=== PATIENT | female | born 1975 | race Caucasian/White ===

== ENCOUNTER 2017-06-16 21:02 | Observation (INO) | payer OTHER ==
[2017-06-16 21:02] VITALS: BMI 29.9
[2017-06-16] MEDS ORDERED: HYDROmorphone 2 mg/ml ISec IVP STA (21:33)
[2017-06-16] MEDS ORDERED: Sodium Chloride 0.9% 1,000 ML IV STA (21:33)
--- NOTE | 2017-06-16 21:33 | ED PDOC ---
Arrival/HPI - General Chief Complaint: Back Pain Time Seen by Provider: 06/16/17 21:29 Historian: Patient - History of Present Illness Narrative History of Present Illness (Text): 06/16/17 21:32 Malini Alcala is a 41 year old female, whose past medical history includes nephrolithiasis, lithotripsy, and cholecystectomy, who presents to the emergency department complaining of right flank pain today. Patient states she woke up this morning with some decreased urine output and developed right flank pain later in the day. Patient reports symptoms are consistent with previous episodes of kidney stones, for which she has been seen and evaluated by her urologist. Patient denies any fever, chills, nausea, vomiting, diarrhea,neck pain, headache, or any other complaints. PMD: Dr. Fall Time/Duration: Other (tonight) Symptom Onset: Gradual Symptom Course: Unchanged Activities at Onset: Light Context: Home Past Medical History - Provider Review Nursing Documentation Reviewed: Yes - Infectious Disease Hx of Infectious Diseases: None - Tetanus Immunization Tetanus Immunization: Unknown - Past Medical History Past Medical History: Non-Contributing - Cardiac Hx Cardiac Disorders: No Hx Hypertension: No - Pulmonary Hx Tuberculosis: No - Neurological HX Cerebrovascular Accident: No Hx Seizures: No - HEENT Hx HEENT Disorder: No - Renal Hx Renal Disorder: No Hx Kidney Stones: Yes - Endocrine/Metabolic Hx Endocrine Disorders: No - Hematological/Oncological Hx Cancer: No - Musculoskeletal/Rheumatological Hx Musculoskeletal Disorders: Yes Hx Back Pain: Yes - Gastrointestinal Hx Gastrointestinal Disorders: No - Genitourinary/Gynecological Hx Genitourinary Disorders: No Hx Sexually Transmitted Diseases: No - Psychiatric Hx Psychophysiologic Disorder: No Hx Substance Use: No - Surgical History Hx Section: Yes Other/Comment: cosmetic surgery - Anesthesia Hx Anesthesia: Yes Hx Anesthesia Reactions: No Hx Malignant Hyperthermia: No - Suicidal Assessment Feels Threatened In Home Enviroment: No Family/Social History - Physician Review Nursing Documentation Reviewed: Yes Family/Social History: Unknown Family HX Smoking Status: Never Smoked Hx Alcohol Use: Yes Hx Substance Use: No Hx Substance Use Treatment: No Allergies/Home Meds Allergies/Adverse Reactions: Allergies No Known Allergies Allergy (Verified 11/09/16 11:44) Home Medications: Home Meds Medication Instructions Recorded Confirmed Oxybutynin XL [Ditropan XL] 15 mg PO DAILY PRN 11/09/16 06/16/17 levoFLOXacin [Levaquin] 500 mg PO DAILY 11/09/16 06/16/17 Review of Systems - Physician Review All systems were reviewed & negative as marked: Yes - Review of Systems Constitutional: Normal. absent: Fevers Eyes: Normal ENT: Normal Respiratory: Normal. absent: SOB Cardiovascular: Normal. absent: Chest Pain Genitourinary Female: Urine Output Changes (+decreased urine output) Musculoskeletal: Back Pain (+right flank pain). absent: Neck Pain Skin: Normal. absent: Rash Neurological: Normal. absent: Headache, Dizziness Endocrine: Normal Hemo/Lymphatic: Normal Psychiatric: Normal Physical Exam Vital Signs Reviewed: Yes Vital Signs Temp Pulse Resp BP Pulse Ox 06/17/17 00:28 81 16 127/85 100 06/16/17 21:23 98.0 F 92 H 18 146/100 H 97 Temperature: Afebrile Blood Pressure: Normal Pulse: Regular Respiratory Rate: Normal Appearance: Positive for: Well-Appearing, Non-Toxic, Comfortable Pain Distress: None Mental Status: Positive for: Alert and Oriented X 3 - Systems Exam Head: Present: Atraumatic, Normocephalic Pupils: Present: PERRL Extroacular Muscles: Present: EOMI Conjunctiva: Present: Normal Mouth: Present: Moist Mucous Membranes Neck: Present: Normal Range of Motion Respiratory/Chest: Present: Clear to Auscultation, Good Air Exchange. No: Respiratory Distress, Accessory Muscle Use Cardiovascular: Present: Regular Rate and Rhythm, Normal S1, S2. No: Murmurs Abdomen: Present: Normal Bowel Sounds. No: Tenderness, Distention, Peritoneal Signs Back: Present: Normal Inspection Upper Extremity: Present: Normal Inspection. No: Cyanosis, Edema Lower Extremity: Present: Normal Inspection. No: Edema Neurological: Present: GCS=15, CN II-XII Intact, Speech Normal Skin: Present: Warm, Dry, Normal Color. No: Rashes Psychiatric: Present: Alert, Oriented x 3, Normal Insight, Normal Concentration Medical Decision Making ED Course and Treatment: 06/16/17 21:33 Impression: 41 year old female complaining of right flank pain with decreased urine output since this morning. Differential Diagnosis included but are not limited to: renal colic vs. renal stones Plan: -- CT Abdomen and Pelvis w/o contrast -- Labs -- Urinalysis -- IV fluids -- Zofran -- Dilaudid -- Reassess and disposition Prior Visits: Notes and results from previous visits were reviewed. On 11/09/2016, pt was seen in the Emergency department for right flank pain radiating to her RLQ. Pt was admitted to the hospital for further evaluation. Progress Notes: 06/16/17 23:47 Reviewed radiology, CT Abdomen and Pelvis shows: 1. RIGHT proximal ureteral calculus with [id number] hydronephrosis. 2. Incidental/non-acute findings are described above. 06/17/17 00:29 Pt still experiencing right flank pain. Will order Dilaudid Case discussed with Dr. Milvia Fall, who is aware and agrees with plan. States he will consult on case. 06/17/17 00:31 Case discussed with medical and scientific illustrator contract associate manager, who is aware and agrees with plan. 06/17/17 00:[address] Argueta, who is aware and agrees with plan. Accepts pt in to hospitalist service. Pt will go to [facility] observation for right-sided renal colic. Discussed results and hospital observation plan with pt, who is aware and verbalizes understanding. - Lab Interpretations Lab Results: 06/16/17 21:40 06/16/17 21:40 Lab Results 06/16/17 21:40: Alcohol, Quantitative < 10 06/16/17 21:40: Sodium 142, Potassium 3.6, Chloride 106, Carbon Dioxide 26, Anion Gap 14, BUN 12, Creatinine 0.8, Est GFR ( Amer) > 60, Est GFR (Non- Af Amer) > 60, Random Glucose 92, Calcium 9.5, Total Bilirubin 0.4, AST 28, ALT 31, Alkaline Phosphatase 67, Total Protein 6.7, Albumin 4.1, Globulin 2.6, Albumin/Globulin Ratio 1.6 06/16/17 21:40: Urine Color Yellow, Urine Appearance Sl cloudy, Urine pH 6.0, Ur Specific [place] >= 1.030, Urine Protein Trace H, Urine Glucose (UA) Negative , Urine Ketones Trace H, Urine Blood Large H, Urine Nitrate Negative, Urine Bilirubin Negative, Urine Urobilinogen 0.2, Ur Leukocyte Esterase Negative, Urine RBC 25 - 30, Urine WBC Negative, Ur Epithelial Cells 10 - 12, Urine Bacteria Trace 06/16/17 21:40: WBC 8.2 D, RBC 3.97, Hgb 12.6, Hct 36.0, MCV 90.7, MCH 31.7, MCHC 35.0, RDW 12.5, Plt Count 257, MPV 9.6, Gran % 65.0, Lymph % (Auto) 25.5, [place] % (Auto) 4.9, Eos % (Auto) 4.4, Baso % (Auto) 0.2, Gran # 5.29, Lymph # 2.1 , [place] # 0.4, Eos # 0.4, Baso # 0.02 I have reviewed the lab results: Yes - RAD Interpretation Narrative RAD Interpretations (Text): CT Abdomen and Pelvis shows: Lower thorax: Minimal atelectasis/scarring. ABDOMEN: Liver: Unremarkable. Gallbladder and bile ducts: Cholecystectomy. No ductal dilation. Pancreas: Unremarkable. No ductal dilation. Spleen: No splenomegaly. Adrenals: No mass. Kidneys and ureters: LEFT renal cyst. Few small renal calculi. Nahm-re-wurnzvgm pelvocaliectasis of RIGHT kidney. 0.3 x 0.3 x 0.3 cm calculus within RIGHT proximal ureter. Stomach and bowel: No definite mural thickening. No obstruction. Appendix: Normal caliber. No inflammation. PELVIS: Bladder: Unremarkable. No stones. Reproductive: Unremarkable as visualized. ABDOMEN and PELVIS: Intraperitoneal space: No significant fluid collection. No free air. Bones/joints: No acute fracture. Soft tissues: Tiny umbilical hernia containing fat. Vasculature: Unremarkable. No aneurysm. Lymph nodes: No pathologically enlarged lymph nodes. IMPRESSION: 1. RIGHT proximal ureteral calculus with [id number] hydronephrosis. 2. Incidental/non-acute findings are described above. Radiology Orders: 06/16/17 21:33 ABD & PELVIS W/O PO OR IV CONT [CT] Stat Skein Mercerizing Machine Operator: Radiologist - Medication Orders Current Medication Orders: Discontinued Medications Docusate Sodium (Colace) 100 mg PO DAILY [facility] Last Admin: 06/17/17 10:00 Dose: Not Given Non-Admin Reason: Nausea Hydrochlorothiazide (Microzide) 12.5 mg PO DAILY [facility] Last Admin: 06/17/17 10:00 Dose: Not Given Non-Admin Reason: Nausea Hydromorphone HCl (Dilaudid) 2 mg IVP STAT STA Stop: 06/16/17 21:34 Last Admin: 06/16/17 21:56 Dose: 2 mg Re-Assess: [facility] Pain Assessment Document 06/17/17 02:15 KP (Rec: 06/17/17 03:46 KP [id number]) Pain Reassessment Is this a pain reassessment? Yes Sleep Is patient sleeping during reassessment? No Presence of Pain Presence of Pain No Hydromorphone HCl (Dilaudid) 2 mg IVP STAT STA Stop: 06/17/17 00:30 Last Admin: 06/17/17 00:49 Dose: 2 mg Re-Assess: [facility] Pain Assessment Document 06/17/17 02:30 KP (Rec: 06/17/17 02:52 KP [id number]) Pain Reassessment Is this a pain reassessment? Yes Sleep Is patient sleeping during reassessment? No Presence of Pain Presence of Pain No Sodium Chloride (Sodium Chloride 0.9%) 1,000 mls @ 100 mls/hr IV .Q10H STA Stop: 06/17/17 07:32 Last Admin: 06/16/17 21:55 Dose: 100 mls/hr Ceftriaxone Sodium (Rocephin 1 Gram Ivpb) 1 gm in 100 mls @ 200 mls/hr IVPB STAT STA PRN Reason: Protocol Stop: 06/17/17 01:16 Last Admin: 06/17/17 01:31 Dose: 200 mls/hr Sodium Chloride (Sodium Chloride 0.9%) 1,000 mls @ 200 mls/hr IV .Q5H [facility] Last Admin: 06/17/17 02:15 Dose: 200 mls/hr Sodium Chloride (Sodium Chloride 0.9%) 1,000 mls @ 100 mls/hr IV .Q10H [facility] Sodium Chloride (Sodium Chloride 0.9%) 1,000 mls @ 125 mls/hr IV .Q8H [facility] Ketorolac Tromethamine (Toradol) 30 mg IVP ONCE ONE Stop: 06/17/17 03:01 Last Admin: 06/17/17 03:47 Dose: Not Given Non-Admin Reason: Patient Asleep Ketorolac Tromethamine (Toradol) 15 mg IVP Q5H PRN PRN Reason: Pain, moderate (4-7) Lorazepam (Ativan) 1 mg IVP Q6H PRN; Protocol PRN Reason: Symptoms of alcohol withdrawl Morphine Sulfate (Morphine) 2 mg IVP Q4H PRN PRN Reason: Pain, moderate (4-7) Last Admin: 06/17/17 07:44 Dose: 2 mg Re-Assess: [facility] Pain Assessment Document 06/17/17 08:44 MJEmil (Rec: 06/17/17 09:37 GILL [id number]) Pain Reassessment Is this a pain reassessment? Yes Sleep Is patient sleeping during reassessment? No Presence of Pain Presence of Pain No Ondansetron HCl (Zofran Inj) 4 mg IVP STAT STA Stop: 06/16/17 21:34 Last Admin: 06/16/17 21:57 Dose: 4 mg Ondansetron HCl (Zofran Inj) 4 mg IVP STAT STA Stop: 06/17/17 00:30 Last Admin: 06/17/17 00:49 Dose: 4 mg Ondansetron HCl (Zofran Inj) 4 mg IVP Q4H PRN PRN Reason: Nausea/Vomiting Last Admin: 06/17/17 09:53 Dose: 4 mg Ondansetron HCl (Zofran Inj) 4 mg IVP STAT STA Stop: 06/17/17 06:11 Last Admin: 06/17/17 06:33 Dose: 4 mg Pantoprazole Sodium (Protonix Inj) 40 mg IVP DAILY [facility] Last Admin: 06/17/17 09:53 Dose: 40 mg Sennosides (Senokot Tab) 17.2 mg PO HS [facility] Tamsulosin HCl (Flomax) 0.4 mg PO DAILY [facility] Thiamine HCl (Vitamin B1 Tab) 50 mg PO DAILY [facility] Last Admin: 06/17/17 10:00 Dose: Not Given Non-Admin Reason: Nausea Tramadol HCl (Ultram) 50 mg PO Q8H PRN PRN Reason: Pain, moderate (4-7) Last Admin: 06/17/17 14:58 Dose: 50 mg - Scribe Statement The provider has reviewed the documentation as recorded by the Emile Girard Provider Scribe Attestation: All medical record entries made by the Scribe were at my direction and personally dictated by me. I have reviewed the chart and agree that the record accurately reflects my personal performance of the history, physical exam, medical decision making, and the department course for this patient. I have also personally directed, reviewed, and agree with the discharge instructions and disposition. Disposition/Present on Arrival - Present on Arrival Any Indicators Present on Arrival: No History of DVT/PE: No History of Uncontrolled Diabetes: No Urinary Catheter: No History of Decub. Ulcer: No History Surgical Site Infection Following: None - Disposition Have Diagnosis and Disposition been Completed?: Yes Diagnosis: Ureteral colic Disposition: HOSPITALIZED Disposition Time: 00:35 Condition: GOOD
[2017-06-16 22:21] LABS: ALB/GLOB RATIO 1.6 (1.1-1.8); ALKALINE PHOSPHATASE 67 U/L (38-126); ALT/SGPT 31 U/L (7-56); AST/SGOT 28 U/L (14-36); BILIRUBIN,TOTAL 0.4 mg/dL (0.2-1.3); BLOOD UREA NITROGEN 12 mg/dL (7-21); CALCIUM 9.5 mg/dL (8.4-10.5); CARBON DIOXIDE 26 mmol/L (21-33); CHLORIDE 106 mmol/L (98-107); GFR AFRICAN-AMERICAN > 60; GLUCOSE,RANDOM 92 mg/dL (70-110); POTASSIUM 3.6 mmol/L (3.6-5.0); SODIUM 142 mmol/L (132-148); TOTAL PROTEIN 6.7 g/dL (5.8-8.3)
[2017-06-16 22:24] LABS: BASO # 0.02 K/mm3 (0.0-2.0); BASO % 0.2 % (0.0-3.0); EOS # 0.4 (0.0-0.7); EOS % 4.4 % (1.5-5.0); GRAN # 5.29 (1.4-6.5); LYMPH # 2.1 (1.2-3.4); LYMPH % 25.5 % (22.0-35.0); MEAN CELL VOLUME 90.7 fl (80.0-105.0); MEAN CORPUSCULAR HEMOGLOBIN 31.7 pg (25.0-35.0); MEAN PLATELET VOLUME 9.6 fl (7.0-11.0); MONO # 0.4 (0.1-0.6); MONO % 4.9 % (1.0-6.0); RED CELL DISTRIBUTION WIDTH 12.5 % (11.5-14.5); WHITE BLOOD COUNT 8.2 10^3/ul (4.5-11.0)
[2017-06-16 22:25] LABS: URINE APPEARANCE SL CLOUDY (CLEAR); URINE BILIRUBIN NEGATIVE (NEGATIVE); URINE BLOOD LARGE (NEGATIVE); URINE COLOR YELLOW (YELLOW); URINE GLUCOSE (UA) NEGATIVE (NEGATIVE); URINE KETONE TRACE mg/dL (NEGATIVE); URINE LEUKOCYTE ESTERASE NEGATIVE Leu/uL (NEGATIVE); URINE PROTEIN TRACE mg/dL (<30 mg/dL); URINE UROBILINOGEN 0.2 E.U./dL (<1 E.U./dL)
[2017-06-16 22:30] LABS: URINE RBC 25 - 30 /hpf (0-2); URINE WBC NEGATIVE /hpf (0-6)
[2017-06-16 22:31] LABS: URINE BACTERIA TRACE (NEG)
--- NOTE | 2017-06-16 23:46 | CT ---
EXAM: CT Abdomen and Pelvis Without Intravenous Contrast CLINICAL HISTORY: 41 years old, female; Pain; Abdominal pain; Acute; Additional info: Flank pain TECHNIQUE: Axial computed tomography images of the abdomen and pelvis without intravenous contrast. All CT scans at this facility use one or more dose reduction techniques, viz.: automated exposure control; ma/kV adjustment per patient size (including targeted exams where dose is matched to indication; i.e. head); or iterative reconstruction technique. Coronal and sagittal reformatted images were created and reviewed. COMPARISON: CT - ABD PELVIS W/O PO OR IV CONT 11/09/2016 5:46:25 AM FINDINGS: Lower thorax: Minimal atelectasis/scarring. ABDOMEN: Liver: Unremarkable. Gallbladder and bile ducts: Cholecystectomy. No ductal dilation. Pancreas: Unremarkable. No ductal dilation. Spleen: No splenomegaly. Adrenals: No mass. Kidneys and ureters: LEFT renal cyst. Few small renal calculi. [id number]-wb-pmjazadn pelvocaliectasis of RIGHT kidney. 0.3 x 0.3 x 0.3 cm calculus within RIGHT proximal ureter. Stomach and bowel: No definite mural thickening. No obstruction. Appendix: Normal caliber. No inflammation. PELVIS: Bladder: Unremarkable. No stones. Reproductive: Unremarkable as visualized. ABDOMEN and PELVIS: Intraperitoneal space: No significant fluid collection. No free air. Bones/joints: No acute fracture. Soft tissues: Tiny umbilical hernia containing fat. Vasculature: Unremarkable. No aneurysm. Lymph nodes: No pathologically enlarged lymph nodes. IMPRESSION: 1. RIGHT proximal ureteral calculus with veut-ts-gegwbmon hydronephrosis. 2. Incidental/non-acute findings are described above.
[2017-06-17 00:29] VITALS: O2SAT 100
[2017-06-17] MEDS ORDERED: HYDROmorphone 2 mg/ml ISec IVP STA (00:29)
--- NOTE | 2017-06-17 00:39 | CP.PCM.HP ---
<Perla Joseph - Last Filed: 06/17/17 01:32> History of Present Illness - History of Present Illness History of Present Illness: CC: I have kidney stones HPI: 41 year old female PMHx recurrent nephrolithiasis and migraines presents with one day of R flank pain. Patient reported she woke up this morning and noticed she had decreased UO despite no change in fluid intake. She started to notice some discomfort and right sided lower back pain that began to worsen and radiate to her right flank and to the front. Patient reported that at its worst the pain was 12/10 and a dull cramping sensation that was intermittent. She admitted to associated nausea and 2 episodes of nonbloody nonbilious emesis prior to coming to the ED. In the ER patient had multiple episodes of nonbloody nonbilious emesis that were witnessed. She relayed this is her "12th episode" of kidney stones. She has had an extensive work up of nephrolithasis and sees Dr. Fall regularly. She reports her stones have tested positive to be calcium oxalate stones. She has tried preventative measures with diet restriction of calcium intake and in the past when she begins to become symptomatic she has taken flomax as prescribed. Patient has not tried HCTZ before. On ROS she denied fever, chills, chest pain, SOB, cough, abd pain, bowel complaints, hematuria pain/swelling in her legs bilaterally, easy bleeding, numbness/tingling. Patient admits to headache, dizziness, palpitations, nausea, vomiting, dysuria, R flank pain, and easy bruising. She denies any recent travel, sick contacts, recent illnesses. PMD: Dr. Pringle- last seen 3 mo ago Urologist: Dr. Fall- last seen 2 mo ago PMHx: recurrent nephrolithiasis and migraines PSurgHx: 2010, "tummy tuck" 2012, Cholecystectomy 2017 PUrologicalProcedures: bilateral lithotripsy 2017; 11/09/16: cysto with removal of bladder stone and R RTG pyelogram and stent insertion by Dr. Emilia Fall FamHx: Diabetes Meds: Xanax for anxiety prn, Naproxen for pain prn ALL: NKDA SocHx: smokes cigars once/month; drinks 30 beers/week socially for the past 2 months with last drink of 3 beers night before admission. Patient is unemployed and lives at home with and 6 year old child. Present on Admission - Present on Admission Any Indicators Present on Admission: No Review of Systems - Constitutional Constitutional: As Per HPI. absent: Chills, Fever - EENT Eyes: As Per HPI. absent: Blurred Vision Ears: As Per HPI, Dizziness Nose/Mouth/Throat: As Per HPI. absent: Sore Throat - Cardiovascular Cardiovascular: As Per HPI, Palpitations. absent: Chest Pain, Dyspnea - Respiratory Respiratory: As Per HPI. absent: Cough, Dyspnea, Chest Congestion - Gastrointestinal Gastrointestinal: As Per HPI, Nausea, Vomiting. absent: Abdominal Pain, Coffee Ground Emesis, Constipation, Diarrhea - Genitourinary Genitourinary: As Per HPI, Dysuria, Flank Pain (R sided), Hx Renal/Bladder Calculi. absent: Hematuria, Pyuria, Nocturia - Musculoskeletal Musculoskeletal: As Per HPI, Back Pain. absent: Numbness, Tingling - Integumentary Integumentary: As Per HPI. absent: Dry Skin, Rash - Neurological Neurological: As Per HPI, Dizziness. absent: Numbness, Tingling - Psychiatric Psychiatric: As Per HPI. absent: Anxiety - Endocrine Endocrine: As Per HPI, Palpitations. absent: Polydipsia, Polyphagia, Polyuria - Hematologic/Lymphatic Hematologic: As Per HPI, Easy Bruising. absent: Easy Bleeding Past Patient History - Infectious Disease Hx of Infectious Diseases: None - Tetanus Immunizations Tetanus Immunization: Unknown - Past Social History Smoking Status: Never Smoked - CARDIAC Hx Cardiac Disorders: No Hx Hypertension: No - PULMONARY Hx Tuberculosis: No - NEUROLOGICAL HX Cerebrovascular Accident: No Hx Seizures: No - HEENT Hx HEENT Problems: No - RENAL Hx Chronic Kidney Disease: No Hx Kidney Stones: Yes - ENDOCRINE/METABOLIC Hx Endocrine Disorders: No - HEMATOLOGICAL/ONCOLOGICAL Hx Cancer: No - MUSCULOSKELETAL/RHEUMATOLOGICAL Hx Musculoskeletal Disorders: Yes Hx Back Pain: Yes - GASTROINTESTINAL Hx Gastrointestinal Disorders: No - GENITOURINARY/GYNECOLOGICAL Hx Genitourinary Disorders: No Hx Sexually Transmitted Disorders: No - PSYCHIATRIC Hx Psychophysiologic Disorder: No Hx Substance Use: No - SURGICAL HISTORY Hx Section: Yes Other/Comment: cosmetic surgery - ANESTHESIA Hx Anesthesia: Yes Hx Anesthesia Reactions: No Hx Malignant Hyperthermia: No Meds Allergies/Adverse Reactions: Allergies Allergy/AdvReac Type Severity Reaction Status Date / Time No Known Allergies Allergy Verified 11/09/16 11:44 Physical Exam - Constitutional Appears: In Acute Distress - Head Exam Head Exam: ATRAUMATIC, NORMAL INSPECTION, NORMOCEPHALIC - Eye Exam Eye Exam: EOMI, Normal appearance, PERRL. absent: Conjunctival injection, Scleral icterus Pupil Exam: NORMAL ACCOMODATION - ENT Exam ENT Exam: Mucous Membranes Moist - Neck Exam Neck exam: Positive for: Full Rom, Normal Inspection. Negative for: Tenderness - Respiratory Exam Respiratory Exam: Clear to Auscultation Bilateral, NORMAL BREATHING PATTERN. absent: Accessory Muscle Use, Rales, Rhonchi, Wheezes, Respiratory Distress - Cardiovascular Exam Cardiovascular Exam: REGULAR RHYTHM, RRR, +S1, +S2 - GI/Abdominal Exam GI & Abdominal Exam: Normal Bowel Sounds, Soft. absent: Firm, Guarding, Rigid, Tenderness - Extremities Exam Extremities exam: Positive for: normal capillary refill, normal inspection, pedal pulses present. Negative for: pedal edema - Back Exam Back exam: NORMAL INSPECTION. absent: CVA tenderness (L), CVA tenderness (R), paraspinal tenderness, rash noted - Neurological Exam Neurological exam: Alert, CN II-XII Intact, Oriented x3 - Psychiatric Exam Psychiatric exam: Normal Affect, Normal Mood - Skin Skin Exam: Dry, Intact, Normal Color, Warm Results - Vital Signs Recent Vital Signs: Last Vital Signs Temp 98.0 F 06/16/17 21:23 Pulse 81 06/17/17 00:28 Resp 16 06/17/17 00:28 BP 127/85 06/17/17 00:28 Pulse Ox 100 06/17/17 00:28 - Labs Result Diagrams: 06/16/17 21:40 06/16/17 21:40 Labs: Laboratory Results - last 24 hr 06/16/17 06/16/17 06/16/17 21:40 21:40 21:40 WBC 8.2 D RBC 3.97 Hgb 12.6 Hct 36.0 MCV 90.7 MCH 31.7 MCHC 35.0 RDW 12.5 Plt Count 257 MPV 9.6 Gran % 65.0 Lymph % (Auto) 25.5 [place] % (Auto) 4.9 Eos % (Auto) 4.4 Baso % (Auto) 0.2 Gran # 5.29 Lymph # 2.1 Adams # 0.4 Eos # 0.4 Baso # 0.02 Sodium 142 Potassium 3.6 Chloride 106 Carbon Dioxide 26 Anion Gap 14 BUN 12 Creatinine 0.8 Est GFR ( Amer) > 60 Est GFR (Non-Af Amer) > 60 Random Glucose 92 Calcium 9.5 Total Bilirubin 0.4 AST 28 ALT 31 Alkaline Phosphatase 67 Total Protein 6.7 Albumin 4.1 Globulin 2.6 Albumin/Globulin Ratio 1.6 Urine Color Yellow Urine Appearance Sl cloudy Urine pH 6.0 Ur Specific [place] >= 1.030 Urine Protein Trace H Urine Glucose (UA) Negative Urine Ketones Trace H Urine Blood Large H Urine Nitrate Negative Urine Bilirubin Negative Urine Urobilinogen 0.2 Ur Leukocyte Esterase Negative Urine RBC 25 - 30 Urine WBC Negative Ur Epithelial Cells 10 - 12 Urine Bacteria Trace Assessment & Plan - Assessment and Plan (Free Text) Assessment: 41 year old female PMHx recurrent nephrolithiasis and migraines presents with one day of R flank pain Plan: R renal colic - patient has hx of recurrent nephrolithasis with calcium oxalate stones - CT Abd/pelvis: R proximal ureteral calculus with mild to moderate hydronephrosis; 0.3 x 0.3 x 0.3cm calculus within R proximal ureter - NS @ 200cc/hr - Toradol 30mg ivp x 1 time - Morphine 2mg ivp q4 prn pain [mod] - Zofran 4mg ivp q4 prn [nausea/vomiting] - HCTZ 12.5mg po qdaily - Flomax 0.4mg po qdaily - UA: trace protein, trace ketones, Large blood - f/u urine culture and blood culture - received Rocephin 1 dose in the ED - strain urine for calculus prn - Urology: Dr. Fall consulted Hx of suspected alcohol abuse - patient reports drinking 30 beers/week for the past 2 months - f/u Alcohol level - Thiamine 50mg po qd - patient counseled in detail regarding risks of EtOH abuse DVT ppx: SCDs [VTE ppx c/i as patient might go to OR tomorrow] GI ppx: Protonix 40mg ivp qdaily, Senna 17.2mg po qhs, Colace 100mg po qdaily Diet: NPO except meds Case discussed with Dr. Ellie Joseph PGY2 <Deven Argueta P - Last Filed: 06/17/17 06:49> Results - Vital Signs Recent Vital Signs: Last Vital Signs Temp 97.8 F 06/17/17 02:29 Pulse 81 06/17/17 02:29 Resp 20 06/17/17 02:29 BP 143/101 H 06/17/17 02:29 Pulse Ox 100 06/17/17 00:28 - Labs Result Diagrams: 06/16/17 21:40 06/16/17 21:40 Attending/Attestation - Attestation I have personally seen and examined this patient.: Yes I have fully participated in the care of the patient.: Yes I have reviewed all pertinent clinical information: Yes Notes (Text): 3mm size proximal ureter calculus with hydroneprhosis, h/o recurrent ureteric calculus with h/o lithotripsy and stents, calcium oxalate stones as per the patient. Alcoholism drinks about 30 beers/wk. Plan Aggressive ivf NS 200 mls/hr Pain control with NSAIDS and opiods Flomax Strain urine Keep NPO for possibility of ureteric stent, empiric abx HCTZ to reduce calcium secretion in the urine, reduce dietary intake and aggressive oral hydration GI/DVT prophylaxis Thiamine oral, counselled about alcoholism See orders for detail.
[2017-06-17] MEDS ORDERED: cefTRIAXone 1 gm 1 GM/100 ML BAG IVPB STA (00:47)
[2017-06-17] MEDS ORDERED: Sodium Chloride 0.9% 1,000 ML IV SCH ×3 (01:30→12:04)
[2017-06-17] MEDS: Morphine 2 mg/ml ISec IVP PRN ×2 (04:11→07:44)
[2017-06-17 07:21] LABS: BASO # 0.01 K/mm3 (0.0-2.0); BASO % 0.1 % (0.0-3.0); EOS % 0.4 % (1.5-5.0); GRAN # 6.77 (1.4-6.5); HEMATOCRIT 36.7 % (36.0-48.0); LYMPH # 1.3 (1.2-3.4); LYMPH % 15.6 % (22.0-35.0); MEAN CELL VOLUME 91.5 fl (80.0-105.0); MEAN CORPUSCULAR HEMOGLOBIN 31.4 pg (25.0-35.0); MEAN CORPUSCULAR HGB CONC 34.3 g/dl (31.0-37.0); MEAN PLATELET VOLUME 9.5 fl (7.0-11.0); MONO # 0.4 (0.1-0.6); MONO % 4.9 % (1.0-6.0); RED CELL DISTRIBUTION WIDTH 12.7 % (11.5-14.5); WHITE BLOOD COUNT 8.6 10^3/ul (4.5-11.0)
[2017-06-17 07:22] LABS: ALB/GLOB RATIO 1.5 (1.1-1.8); ALKALINE PHOSPHATASE 70 U/L (38-126); ALT/SGPT 33 U/L (7-56); AST/SGOT 24 U/L (14-36); BILIRUBIN,TOTAL 0.6 mg/dL (0.2-1.3); BLOOD UREA NITROGEN 10 mg/dL (7-21); CALCIUM 8.8 mg/dL (8.4-10.5); CARBON DIOXIDE 26 mmol/L (21-33); CHLORIDE 108 mmol/L (98-107); GFR AFRICAN-AMERICAN > 60; GLUCOSE,RANDOM 118 mg/dL (70-110); MAGNESIUM 1.7 mg/dL (1.7-2.2); PHOSPHOROUS 2.5 mg/dL (2.5-4.5); POTASSIUM 3.9 mmol/L (3.6-5.0); SODIUM 143 mmol/L (132-148); TOTAL PROTEIN 6.7 g/dL (5.8-8.3)
[2017-06-17 08:16] VITALS: BP 106/65; PULSE 63; RESP 18; TEMP 97.7
[2017-06-17] MEDS ORDERED: Morphine 2 mg/ml ISec IVP PRN (10:00)
[2017-06-17 12:29] LABS: PH,URINE 7.5 (4.7-8.0); URINE BILIRUBIN NEGATIVE (NEGATIVE); URINE BLOOD NEGATIVE (NEGATIVE); URINE GLUCOSE (UA) NEGATIVE (NEGATIVE); URINE KETONE NEGATIVE (NEGATIVE); URINE LEUKOCYTE ESTERASE NEGATIVE Leu/uL (NEGATIVE); URINE PROTEIN NEGATIVE mg/dL (<30 mg/dL); URINE UROBILINOGEN 0.2 E.U./dL (<1 E.U./dL)
[2017-06-17 12:30] LABS: URINE APPEARANCE CLEAR (CLEAR); URINE COLOR YELLOW (YELLOW)
--- NOTE | 2017-06-17 13:36 | RAD ---
PROCEDURE: Abdomen multiple views HISTORY: KIDNEY STONES COMPARISON: TECHNIQUE: Three views FINDINGS: There is a thin linear stone in the lower pole of left kidney which is 5 mm in length. There are no other visible stones IMPRESSION: As above
--- NOTE | 2017-06-18 00:12 | CP.PCM.DIS ---
<ANNABELLE VYAS - Last Filed: 06/18/17 00:21> Provider - Provider Date of Admission: 06/17/17 00:30 Attending physician: Raheem Watts MD Primary care physician: Robi Pringle MD Time Spent in preparation of Discharge (in minutes): 45 Hospital Course - Lab Results Lab Results: Most Recent Lab Values WBC 8.6 10^3/ul (4.5-11.0) 06/17/17 06:45 RBC 4.01 10^6/uL (3.5-6.1) 06/17/17 06:45 Hgb 12.6 g/dL (12.0-16.0) 06/17/17 06:45 Hct 36.7 % (36.0-48.0) 06/17/17 06:45 MCV 91.5 fl (80.0-105.0) 06/17/17 06:45 MCH 31.4 pg (25.0-35.0) 06/17/17 06:45 MCHC 34.3 g/dl (31.0-37.0) 06/17/17 06:45 RDW 12.7 % (11.5-14.5) 06/17/17 06:45 Plt Count 248 10^3/uL (120.0-450.0) 06/17/17 06:45 MPV 9.5 fl (7.0-11.0) 06/17/17 06:45 Gran % 79.0 % (50.0-68.0) H 06/17/17 06:45 Lymph % (Auto) 15.6 % (22.0-35.0) L 06/17/17 06:45 [place] % (Auto) 4.9 % (1.0-6.0) 06/17/17 06:45 Eos % (Auto) 0.4 % (1.5-5.0) L 06/17/17 06:45 Baso % (Auto) 0.1 % (0.0-3.0) 06/17/17 06:45 Gran # 6.77 (1.4-6.5) H 06/17/17 06:45 Lymph # 1.3 (1.2-3.4) 06/17/17 06:45 [place] # 0.4 (0.1-0.6) 06/17/17 06:45 Eos # 0.0 (0.0-0.7) 06/17/17 06:45 Baso # 0.01 K/mm3 (0.0-2.0) 06/17/17 06:45 Sodium 143 mmol/L (132-148) 06/17/17 06:45 Potassium 3.9 mmol/L (3.6-5.0) 06/17/17 06:45 Chloride 108 mmol/L (98-107) H 06/17/17 06:45 Carbon Dioxide 26 mmol/L (21-33) 06/17/17 06:45 Anion Gap 13 (10-20) 06/17/17 06:45 BUN 10 mg/dL (7-21) 06/17/17 06:45 Creatinine 0.6 mg/dL (0.5-1.4) 06/17/17 06:45 Est GFR ( Amer) > 60 06/17/17 06:45 Est GFR (Non-Af Amer) > 60 06/17/17 06:45 Random Glucose 118 mg/dL (70-110) H 06/17/17 06:45 Calcium 8.8 mg/dL (8.4-10.5) 06/17/17 06:45 Phosphorus 2.5 mg/dL (2.5-4.5) 06/17/17 06:45 Magnesium 1.7 mg/dL (1.7-2.2) 06/17/17 06:45 Total Bilirubin 0.6 mg/dL (0.2-1.3) 06/17/17 06:45 AST 24 U/L (14-36) 06/17/17 06:45 ALT 33 U/L (7-56) 06/17/17 06:45 Alkaline Phosphatase 70 U/L (38-126) 06/17/17 06:45 Total Protein 6.7 g/dL (5.8-8.3) 06/17/17 06:45 Albumin 4.0 g/dL (3.0-4.8) 06/17/17 06:45 Globulin 2.7 gm/dL 06/17/17 06:45 Albumin/Globulin Ratio 1.5 (1.1-1.8) 06/17/17 06:45 Urine Color Yellow (YELLOW) 06/17/17 12:10 Urine Appearance Clear (CLEAR) 06/17/17 12:10 Urine pH 7.5 (4.7-8.0) 06/17/17 12:10 Ur Specific [place] 1.015 (1.005-1.035) 06/17/17 12:10 Urine Protein Negative mg/dL (<30 mg/dL) 06/17/17 12:10 Urine Glucose (UA) Negative mg/dL (NEGATIVE) 06/17/17 12:10 Urine Ketones Negative mg/dL (NEGATIVE) 06/17/17 12:10 Urine Blood Negative (NEGATIVE) 06/17/17 12:10 Urine Nitrate Negative (NEGATIVE) 06/17/17 12:10 Urine Bilirubin Negative (NEGATIVE) 06/17/17 12:10 Urine Urobilinogen 0.2 E.U./dL (<1 E.U./dL) 06/17/17 12:10 Ur Leukocyte Esterase Negative Freddie/uL (NEGATIVE) 06/17/17 12:10 Urine RBC 25 - 30 /hpf (0-2) 06/16/17 21:40 Urine WBC Negative /hpf (0-6) 06/16/17 21:40 Ur Epithelial Cells 10 - 12 /hpf (0-5) 06/16/17 21:40 Urine Bacteria Trace (NEG) 06/16/17 21:40 Urine HCG, Qual Negative (NEGATIVE) 06/17/17 12:10 Alcohol, Quantitative < 10 mg/dL (0-10) 06/16/17 21:40 - Hospital Course Hospital Course: 41 year old female PMHx recurrent nephrolithiasis and migraines presents with one day of R flank pain. Patient reported she woke up this morning and noticed she had decreased UO despite no change in fluid intake. She started to notice some discomfort and right sided lower back pain that began to worsen and radiate to her right flank and to the front. Patient reported that at its worst the pain was 12/10 and a dull cramping sensation that was intermittent. She admitted to associated nausea and 2 episodes of nonbloody nonbilious emesis prior to coming to the ED. In the ER patient had multiple episodes of nonbloody nonbilious emesis that were witnessed. She relayed this is her "12th episode" of kidney stones. She has had an extensive work up of nephrolithasis and sees Dr. Joselin Fall regularly. She reports her stones have tested positive to be calcium oxalate stones. She has tried preventative measures with diet restriction of calcium intake and in the past when she begins to become symptomatic she has taken flomax as prescribed. CT abd/pelvis was done and showed 3mm stone in prox R ureter and other smaller ones b/l. When seen on med- surg floors, pt states that her urination has improved and back to normal, and states that she has not vomited due to being NPO. However she was still in intermittent pain and was nauseous. pain was managed and Dr. Haydee Fall was consulted. Dr. Haydee Fall spoke w/ Dr. Joselin Fall and decided that pt can be cleared to go home after Abd XRay and if tolerating diet and medically cleared. Pain was managed and pt tolerated liquid diet; medically optimized for d/c. Pt prescribed flomax and percocet prn for pain and will f/u at [facility] in [place] tomorrow and f/u Dr. Fall/ - Date & Time of H&P Date of H&P: 06/17/17 Time of H&P: 00:40 Discharge Exam - Head Exam Head Exam: ATRAUMATIC, NORMAL INSPECTION, NORMOCEPHALIC - Eye Exam Eye Exam: EOMI, Normal appearance, PERRL Pupil Exam: NORMAL ACCOMODATION - ENT Exam ENT Exam: Mucous Membranes Moist, Normal Exam - Neck Exam Neck exam: Normal Inspection - Respiratory Exam Respiratory Exam: Clear to PA & Lateral, NORMAL BREATHING PATTERN, UNREMARKABLE. absent: Accessory Muscle Use - Cardiovascular Exam Cardiovascular Exam: RRR, +S1, +S2 - GI/Abdominal Exam GI & Abdominal Exam: Normal Bowel Sounds, Soft, Unremarkable. absent: Distended , Tenderness - Extremities Exam Extremities exam: normal inspection - Back Exam Back exam: NORMAL INSPECTION. absent: CVA tenderness (L), CVA tenderness (R), muscle spasm - Neurological Exam Neurological exam: Alert, CN II-XII Intact, Oriented x3 - Psychiatric Exam Psychiatric exam: Normal Affect, Normal Mood - Skin Skin Exam: Normal Color, Warm Discharge Plan - Discharge Medications Prescriptions: oxyCODONE/Acetaminophen [Percocet 5/325 mg Tab] 1 ea PO Q6 PRN #10 PRN Reason: Pain, Moderate (4-7) Tamsulosin [Flomax] 0.4 mg PO DAILY #10 cap - Follow Up Plan Condition: GOOD Disposition: HOME/ ROUTINE Instructions: Kidney Stones (DC), Renal Colic (GEN) Additional Instructions: f/u Dr. Fall tomorrow for clinic [facility] Referrals: Abdullahi Fall MD [Staff Provider] - <Raheem Watts - Last Filed: 06/18/17 16:17> Provider - Provider Date of Admission: 06/17/17 00:30 Attending physician: Raheem Watts MD Primary care physician: Robi Pringle MD Hospital Course - Lab Results Lab Results: Micro Results 06/17/17 01:42 Blood-Venous Blood Culture - Preliminary NO GROWTH AFTER 24 HOURS 06/17/17 01:20 Blood-Venous Blood Culture - Preliminary NO GROWTH AFTER 24 HOURS Most Recent Lab Values WBC 8.6 10^3/ul (4.5-11.0) 06/17/17 06:45 RBC 4.01 10^6/uL (3.5-6.1) 06/17/17 06:45 Hgb 12.6 g/dL (12.0-16.0) 06/17/17 06:45 Hct 36.7 % (36.0-48.0) 06/17/17 06:45 MCV 91.5 fl (80.0-105.0) 06/17/17 06:45 MCH 31.4 pg (25.0-35.0) 06/17/17 06:45 MCHC 34.3 g/dl (31.0-37.0) 06/17/17 06:45 RDW 12.7 % (11.5-14.5) 06/17/17 06:45 Plt Count 248 10^3/uL (120.0-450.0) 06/17/17 06:45 MPV 9.5 fl (7.0-11.0) 06/17/17 06:45 Gran % 79.0 % (50.0-68.0) H 06/17/17 06:45 Lymph % (Auto) 15.6 % (22.0-35.0) L 06/17/17 06:45 [place] % (Auto) 4.9 % (1.0-6.0) 06/17/17 06:45 Eos % (Auto) 0.4 % (1.5-5.0) L 06/17/17 06:45 Baso % (Auto) 0.1 % (0.0-3.0) 06/17/17 06:45 Gran # 6.77 (1.4-6.5) H 06/17/17 06:45 Lymph # 1.3 (1.2-3.4) 06/17/17 06:45 [place] # 0.4 (0.1-0.6) 06/17/17 06:45 Eos # 0.0 (0.0-0.7) 06/17/17 06:45 Baso # 0.01 K/mm3 (0.0-2.0) 06/17/17 06:45 Sodium 143 mmol/L (132-148) 06/17/17 06:45 Potassium 3.9 mmol/L (3.6-5.0) 06/17/17 06:45 Chloride 108 mmol/L (98-107) H 06/17/17 06:45 Carbon Dioxide 26 mmol/L (21-33) 06/17/17 06:45 Anion Gap 13 (10-20) 06/17/17 06:45 BUN 10 mg/dL (7-21) 06/17/17 06:45 Creatinine 0.6 mg/dL (0.5-1.4) 06/17/17 06:45 Est GFR ( Amer) > 60 06/17/17 06:45 Est GFR (Non-Af Amer) > 60 06/17/17 06:45 Random Glucose 118 mg/dL (70-110) H 06/17/17 06:45 Calcium 8.8 mg/dL (8.4-10.5) 06/17/17 06:45 Phosphorus 2.5 mg/dL (2.5-4.5) 06/17/17 06:45 Magnesium 1.7 mg/dL (1.7-2.2) 06/17/17 06:45 Total Bilirubin 0.6 mg/dL (0.2-1.3) 06/17/17 06:45 AST 24 U/L (14-36) 06/17/17 06:45 ALT 33 U/L (7-56) 06/17/17 06:45 Alkaline Phosphatase 70 U/L (38-126) 06/17/17 06:45 Total Protein 6.7 g/dL (5.8-8.3) 06/17/17 06:45 Albumin 4.0 g/dL (3.0-4.8) 06/17/17 06:45 Globulin 2.7 gm/dL 06/17/17 06:45 Albumin/Globulin Ratio 1.5 (1.1-1.8) 06/17/17 06:45 Urine Color Yellow (YELLOW) 06/17/17 12:10 Urine Appearance Clear (CLEAR) 06/17/17 12:10 Urine pH 7.5 (4.7-8.0) 06/17/17 12:10 Ur Specific [place] 1.015 (1.005-1.035) 06/17/17 12:10 Urine Protein Negative mg/dL (<30 mg/dL) 06/17/17 12:10 Urine Glucose (UA) Negative mg/dL (NEGATIVE) 06/17/17 12:10 Urine Ketones Negative mg/dL (NEGATIVE) 06/17/17 12:10 Urine Blood Negative (NEGATIVE) 06/17/17 12:10 Urine Nitrate Negative (NEGATIVE) 06/17/17 12:10 Urine Bilirubin Negative (NEGATIVE) 06/17/17 12:10 Urine Urobilinogen 0.2 E.U./dL (<1 E.U./dL) 06/17/17 12:10 Ur Leukocyte Esterase Negative [place]/uL (NEGATIVE) 06/17/17 12:10 Urine RBC 25 - 30 /hpf (0-2) 06/16/17 21:40 Urine WBC Negative /hpf (0-6) 06/16/17 21:40 Ur Epithelial Cells 10 - 12 /hpf (0-5) 06/16/17 21:40 Urine Bacteria Trace (NEG) 06/16/17 21:40 Urine HCG, Qual Negative (NEGATIVE) 06/17/17 12:10 Alcohol, Quantitative < 10 mg/dL (0-10) 06/16/17 21:40 Attending/Attestation - Attestation I have personally seen and examined this patient.: Yes I have fully participated in the care of the patient.: Yes I have reviewed all pertinent clinical information, including history, physical exam and plan: Yes Notes (Text): I have seen and examined the patient at bedside. Agree with the above note with the following additions/ exceptions: Briefly this is 41 year old female with history of recurrent calcium oxalate nephrolithiasis and migraines who presented with flank pain and found to have non obstructing 3mm right sided ureteral stone. She was given IV hydration, analgesics and flomax. Patient was aadvised to continue to strain urine. Patient feels comfortable and states that she wants to go home. Urology consult appreciated. Patient was advised to [facility]. Upon discharge patient will follow up with Dr Fall. Dr Raheem Watts
== END 2017-06-17 17:43 | disposition home or self-care (01) ==
LOC: ED 21:02 → ERH 06-17 00:30 → 5RNO 06-17 02:08
PROVIDERS: ADMIT Internal Medicine; ATTEND Hospitalist
DX: N13.2 Hydronephrosis with renal and ureteral calculous obstruction (principal); G43.909 Migraine, unspecified, not intractable, without status migrainosus; F17.290 Nicotine dependence, other tobacco product, uncomplicated; F10.20 Alcohol dependence, uncomplicated; Y90.9 Presence of alcohol in blood, level not specified
CPT/HCPCS: 74022; 74176; 80053; 80320; 81001; 81003; 83735; 84100; 84703; 85025; 87040; 87086; 96374; 96375; 96376; 99284; C9113; G0378; J0696; J1170; J2270; J2405; J7040